=== PATIENT | female | born 1980 ===

== ENCOUNTER 2018-06-25 15:54 | Inpatient (IN) | payer OTHER ==
[~2018-06-25] VITALS: Ht 160 cm; Wt 89.1 kg
[2018-06-25] VITALS (15 sets, daily range): BP systolic 92–139; BP diastolic 54–83; PULSE 72–102; TEMP 98.3–98.4
[2018-06-25] MEDS ORDERED: PRENATAL PO (16:10)
[2018-06-25 16:53] LABS: BASO # 0.1 (0.0-0.2); BASO % 0.4 % (0.0-2.0); EOS # 0.1 (0.0-0.7); EOS % 1.1 % (0-4.0); GRAN # 9.2 (1.4-6.5); GRAN % 73.1 % (42.2-75.2); LYMPH # 2.6 (1.2-3.4); LYMPH % 20.3 % (20.0-51.0); MEAN CELL VOLUME 85 fl (80.0-100.0); MEAN CORPUSCULAR HEMOGLOBIN 28 pg (27.0-31.0); MEAN CORPUSCULAR HGB CONC 33 g/dl (33.0-37.0); MEAN PLATELET VOLUME 10.9 fl (7.4-10.4); MONO # 0.6 (0.1-0.6); MONO % 4.5 % (1.7-9.3); PLATELET COUNT 376 K/mm3 (130-400); RED BLOOD COUNT 4.32 M/mm3 (4.10-5.30); REDCELL DISTRIBUTION WIDTH-CV 15.1 % (11.5-14.5)
[2018-06-25 16:54] LABS: HEMATOCRIT 36.7 % (37.0-47.0)
[2018-06-25] MEDS ORDERED: PERCOCET 325 MG1 TA2 PO (18:17)
[2018-06-25] MEDS ORDERED: MOTRIN 800800 MG/TAB PO (18:17)
[2018-06-26 01:00] VITALS: BP 110/51; PULSE 87; TEMP 98.8
[2018-06-26 05:00] VITALS: BP 111/72; PULSE 88; TEMP 98.5
[2018-06-26 08:10] VITALS: BP 117/61; PULSE 90; TEMP 97.8
[2018-06-26 12:15] VITALS: BP 109/62; PULSE 99; TEMP 98
[2018-06-26 16:30] VITALS: BP 108/58; PULSE 94; TEMP 98
[2018-06-26 21:10] VITALS: BP 110/68; PULSE 80; TEMP 97.8
[2018-06-27 09:12] VITALS: BP 121/72; PULSE 90; TEMP 98.5
[2018-06-27 15:19] VITALS: BP 110/70; PULSE 71; TEMP 98.8
== END 2018-06-27 17:00 | disposition home or self-care (01) | DRG 807 ==
LOC: LDRO 15:54 → LDR 16:01 → OB 16:01
PROVIDERS: Obstetrics & Gynecology
PROC: 10E0XZZ Delivery of Products of Conception, External Approach (ICD-10-PCS; principal; 2018-06-25)
PROC: 0KQM0ZZ Repair Perineum Muscle, Open Approach (ICD-10-PCS; 2018-06-25)
DX: O77.0 Labor and delivery complicated by meconium in amniotic fluid (principal); Z37.0 Single live birth; Z3A.40 40 weeks gestation of pregnancy; O70.1 Second degree perineal laceration during delivery; O69.81X0 Labor and delivery complicated by cord around neck, without compression, not applicable or unspecified; K21.9 Gastro-esophageal reflux disease without esophagitis
CPT/HCPCS: J2590; J7120